=== PATIENT | female | born 1950 | race Caucasian/White ===

== ENCOUNTER 2018-06-01 20:10 | Inpatient (IN) | payer MEDICARE, MEDICAID ==
[~2018-06-01] VITALS: Ht 167.6 cm; Wt 61.1 kg
[2018-06-01] MEDS ORDERED: methylPREDNISolone SOD SUCC 125 MG/2 ML VL IV ONE (20:45)
[2018-06-01] MEDS ORDERED: cefTRIAXone 1GM/10ml IVPUSH 10 ML IV ONE (20:45)
[2018-06-01] MEDS: MAGNESIUM SULFATE 1GM/100ML 100 ML IV SCH ×2 (20:45→22:02)
[2018-06-01] MEDS ORDERED: MAGNESIUM SULFATE 1GM/100ML 100 ML IV ONE (20:48)
[2018-06-01] MEDS ORDERED: IPRATROPIUM BROM 0.5 MG/2.5ML INH SOL NEB ONE (21:00)
[2018-06-01] MEDS ORDERED: ALBUTEROL SULF 2.5 MG/0.5ML(0.5%) NEB SOLN NEB ONE (21:00)
[2018-06-01 21:10] LABS: Basophils # (auto) 0.1 uL; Basophils % (auto) 0.9 % (0.0-2.0); Eosinophils # (auto) 0 uL; Eosinophils % (auto) 0.1 % (0.0-7.0); Hematocrit 37.8 % (36.0-46.0); Hemoglobin 12.2 g/dL (12.2-16.2); Lymphocytes % (auto) 20.5 % (10.0-50.0); Mean Corpuscular Hgb Conc. 32.2 g/dL (32.0-36.0); Mean Corpuscular Volume 96.6 fL (80.0-100.0); Monocytes # (auto) 0.3 uL; Monocytes % (auto) 3.1 % (0.0-12.0); Neutrophils # (auto) 7.2 uL; Neutrophils % (auto) 75.4 % (37.0-80.0); Platelet Count (auto) 358 10^3/uL (140-450); Red Blood Cells 3.91 10^6/uL (4.0-5.20); Red Cell Distribution Width 15.2 % (11.8-14.3); White Blood Cell 9.6 10^3/uL (4.4-10.8)
[2018-06-01 21:18] LABS: INR 0.97 (0.9-1.15); Prothrombin Time 10.4 sec (9.27-12.13)
[2018-06-01 21:19] LABS: Albumin 3.5 g/dL (3.4-5.0); Anion Gap 12 (5-15); Blood Urea Nitrogen 18 mg/dL (7-18); Calcium 9.3 mg/dL (8.5-10.1); Carbon Dioxide 23 mmol/L (21-32); Chloride 106 mmol/L (98-107); Glucose 100 mg/dL (74-106); Potassium 4.5 mmol/L (3.5-5.1); Sodium 141 mmol/L (136-145)
[2018-06-01 21:21] LABS: Alanine Aminotransferase 15 U/L (13-56); Aspartate Aminotransferase 15 U/L (15-37); BUN/Creatinine Ratio 19.6; GFR African American 78 mL/min; GFR Non-African American 65 mL/min
[2018-06-01 21:25] LABS: Alkaline Phosphatase 107 U/L (45-117); Bilirubin, Total 0.6 mg/dL (0.2-1.0); Total Protein 7.9 g/dL (6.4-8.2)
[2018-06-01] MEDS ORDERED: ACETAMINOPHEN 500 MG TAB PO PRN (22:45)
[2018-06-01] MEDS ORDERED: LORazepam 0.5 MG TAB PO PRN (23:45)
[2018-06-02] MEDS: HYDROcodone-ACET 5/325MG TAB PO PRN ×4 (00:01→22:15)
[2018-06-02] MEDS: ALBUTEROL SULF 2.5 MG/0.5ML(0.5%) NEB SOLN NEB SCH ×4 (00:23→19:30)
[2018-06-02] MEDS: IPRATROPIUM BROM 0.5 MG/2.5ML INH SOL NEB SCH ×4 (00:23→19:30)
[2018-06-02 03:13] VITALS: BP 112/66
[2018-06-02 05:24] LABS: Urine Bacteria NONE SEEN /hpf (None Seen); Urine Blood Negative /uL (Negative); Urine Hyaline Cast FEW /lpf (0 - 2); Urine Mucus FEW (None Seen); Urine Specific Gravity 1.026 (1.001-1.035); Urine WBC 9 /hpf (0 - 5)
[2018-06-02] MEDS: GABAPENTIN 300 MG CAP PO SCH ×3 (06:08→22:14)
[2018-06-02 08:08] LABS: Basophils # (auto) 0.1 uL; Basophils % (auto) 0.7 % (0.0-2.0); Eosinophils # (auto) 0 uL; Hematocrit 36.4 % (36.0-46.0); Hemoglobin 11.7 g/dL (12.2-16.2); Lymphocytes # (auto) 1.1 uL; Lymphocytes % (auto) 13.8 % (10.0-50.0); Mean Corpuscular Hemoglobin 30.6 pg (28.0-32.0); Mean Corpuscular Hgb Conc. 32.2 g/dL (32.0-36.0); Mean Corpuscular Volume 95.2 fL (80.0-100.0); Monocytes # (auto) 0.1 uL; Monocytes % (auto) 1.9 % (0.0-12.0); Neutrophils # (auto) 6.5 uL; Neutrophils % (auto) 83.6 % (37.0-80.0); Platelet Count (auto) 343 10^3/uL (140-450); Red Blood Cells 3.83 10^6/uL (4.0-5.20); White Blood Cell 7.7 10^3/uL (4.4-10.8)
[2018-06-02 08:25] LABS: BUN/Creatinine Ratio 24.4; Calcium 8.9 mg/dL (8.5-10.1); Potassium 4.2 mmol/L (3.5-5.1)
[2018-06-02] MEDS: AZITHROMYCIN 500MG/ 250ML 250 ML IV SCH (10:44)
[2018-06-02] MEDS: FLUoxetine HCL 20 MG CAP PO SCH (10:44)
[2018-06-02] MEDS: APIXABAN 5 MG TAB PO SCH ×2 (10:45→22:14)
[2018-06-02 15:04] VITALS: BP 101/77
[2018-06-02] MEDS: ONDANSETRON HCL 4 MG/2 ML VIAL IV PRN ×2 (15:39→22:15)
[2018-06-02 17:00] VITALS: BP 116/94
[2018-06-02] MEDS ORDERED: GABA300C10 PO (17:12)
[2018-06-02] MEDS ORDERED: OME20T PO (17:12)
[2018-06-02] MEDS ORDERED: ALLO300T2 PO (17:12)
[2018-06-02] MEDS ORDERED: ALBUAER3 IN (17:12)
[2018-06-02] MEDS ORDERED: LOVA20TA4 PO (17:12)
[2018-06-02] MEDS ORDERED: FLUO20CA19 PO (17:12)
[2018-06-02] MEDS ORDERED: HYDR-531 PO (17:12)
[2018-06-02] MEDS ORDERED: [UNRECOGNIZED DRUG - CODE] PO (17:12)
[2018-06-02] MEDS ORDERED: PROM1SYP4 PO (17:12)
[2018-06-02] MEDS ORDERED: ALBU0.084 IN (17:12)
[2018-06-02] MEDS ORDERED: MONT10TA34 PO (17:12)
[2018-06-02] MEDS ORDERED: APIX5TAB OR (17:12)
[2018-06-02] MEDS ORDERED: DIPH25CA46 PO (17:12)
[2018-06-02] MEDS ORDERED: FLUT100I IN (17:12)
[2018-06-02] MEDS: NICOTINE 14 MG/24HR TOPICAL PATCH TD SCH (18:21)
[2018-06-02 20:00] VITALS: BP 130/68
[2018-06-02 22:00] VITALS: BP 130/68
[2018-06-02] MEDS ORDERED: MONTELUKAST SODIUM 10 MG TAB PO SCH (22:00)
[2018-06-03] MEDS: IPRATROPIUM BROM 0.5 MG/2.5ML INH SOL NEB SCH ×3 (00:36→12:01)
[2018-06-03] MEDS: ALBUTEROL SULF 2.5 MG/0.5ML(0.5%) NEB SOLN NEB SCH ×3 (00:36→12:01)
[2018-06-03] MEDS ORDERED: guaiFENesin 200 MG/10 ML UD GT PRN (00:45)
[2018-06-03] MEDS: HYDROcodone-ACET 5/325MG TAB PO PRN ×2 (03:11→09:06)
[2018-06-03 05:00] VITALS: BP 118/75
[2018-06-03] MEDS: GABAPENTIN 300 MG CAP PO SCH ×2 (06:11→14:37)
[2018-06-03] MEDS: NICOTINE 14 MG/24HR TOPICAL PATCH TD SCH (08:56)
[2018-06-03] MEDS: AZITHROMYCIN 500MG/ 250ML 250 ML IV SCH (08:56)
[2018-06-03] MEDS: FLUoxetine HCL 20 MG CAP PO SCH (08:57)
[2018-06-03] MEDS: APIXABAN 5 MG TAB PO SCH (08:57)
[2018-06-03 09:00] VITALS: BP 107/69
[2018-06-03] MEDS ORDERED: NICOTINE 14 MG/24HR TOPICAL PATCH TD SCH (10:00)
[2018-06-03] MEDS ORDERED: guaiFENesin 200 MG/10 ML UD GT ONE (13:15)
[2018-06-03] MEDS ORDERED: HYDROcodone-ACET 10/325MG TAB PO ONE (13:15)
== END 2018-06-03 15:50 | disposition home or self-care (01) | DRG 140 ==
LOC: ER 20:10 → EDBD 20:10 → TELE 20:11 → TELE-EAST 06-02 17:04
PROVIDERS: ADMIT Nurse Practitioner Family; ATTEND Internal Medicine Pulmonary Disease
DX: J44.1 Chronic obstructive pulmonary disease with (acute) exacerbation (principal); J96.20 Acute and chronic respiratory failure, unspecified whether with hypoxia or hypercapnia; Z99.81 Dependence on supplemental oxygen; I10 Essential (primary) hypertension; K21.9 Gastro-esophageal reflux disease without esophagitis; F32.9 Major depressive disorder, single episode, unspecified; M10.9 Gout, unspecified; M54.9 Dorsalgia, unspecified; F17.210 Nicotine dependence, cigarettes, uncomplicated; F12.90 Cannabis use, unspecified, uncomplicated; Z86.711 Personal history of pulmonary embolism
CPT/HCPCS: 36415; 36600; 71045; 80048; 80053; 81001; 82805; 83880; 84484; 85025; 85610; 85730; 93005; 94640; 96365; 96366; 96375; 99291; J0696; J2405

== ENCOUNTER 2018-06-26 16:21 | Inpatient (IN) | payer MEDICARE, MEDICAID ==
[~2018-06-26] VITALS: Ht 167.6 cm; Wt 63.4 kg
[~2018-06-26 16:21] MED LIST: ALBU0.084 IN; ALBUAER3 IN; ALLO300T2 PO; APIX5TAB OR; DIPH25CA46 PO; FLUO20CA19 PO; FLUT100I IN; GABA300C10 PO; HYDR-531 PO; LOVA20TA4 PO; MONT10TA34 PO; OME20T PO; PROM1SYP4 PO; [UNRECOGNIZED DRUG - CODE] PO
[2018-06-26 17:46] LABS: Basophils # (auto) 0.1 uL; Basophils % (auto) 0.8 % (0.0-2.0); Eosinophils # (auto) 0.1 uL; Eosinophils % (auto) 1.3 % (0.0-7.0); Hematocrit 37.3 % (36.0-46.0); Hemoglobin 11.9 g/dL (12.2-16.2); Lymphocytes # (auto) 2.2 uL; Mean Corpuscular Hemoglobin 30.4 pg (28.0-32.0); Mean Corpuscular Hgb Conc. 31.8 g/dL (32.0-36.0); Mean Corpuscular Volume 95.6 fL (80.0-100.0); Monocytes # (auto) 0.6 uL; Neutrophils # (auto) 8.1 uL; Neutrophils % (auto) 72.9 % (37.0-80.0); Nucleated Red Blood Cells % 0.1 %; Platelet Count (auto) 242 10^3/uL (140-450); Red Blood Cells 3.91 10^6/uL (4.0-5.20); Red Cell Distribution Width 15.2 % (11.8-14.3); White Blood Cell 11.1 10^3/uL (4.4-10.8)
[2018-06-26 17:59] LABS: Alanine Aminotransferase 19 U/L (13-56); Albumin 3.6 g/dL (3.4-5.0); Alkaline Phosphatase 92 U/L (45-117); Anion Gap 6 (5-15); Aspartate Aminotransferase 13 U/L (15-37); BUN/Creatinine Ratio 18.2; Bilirubin, Total 0.2 mg/dL (0.2-1.0); Blood Urea Nitrogen 18 mg/dL (7-18); Calcium 9.1 mg/dL (8.5-10.1); Carbon Dioxide 24 mmol/L (21-32); Chloride 112 mmol/L (98-107); GFR African American 72 mL/min; GFR Non-African American 59 mL/min; Glucose 124 mg/dL (74-106); Potassium 3.8 mmol/L (3.5-5.1); Sodium 142 mmol/L (136-145); Total Protein 7.7 g/dL (6.4-8.2)
[2018-06-26] MEDS ORDERED: ALBUTEROL SULF 2.5 MG/0.5ML(0.5%) NEB SOLN NEB ONE (18:30)
[2018-06-26] MEDS ORDERED: cefTRIAXone 1GM/10ml IVPUSH 10 ML IV ONE (18:30)
[2018-06-26] MEDS ORDERED: IPRATROPIUM BROM 0.5 MG/2.5ML INH SOL NEB ONE (18:30)
[2018-06-26] MEDS ORDERED: methylPREDNISolone SOD SUCC 125 MG/2 ML VL IV ONE (18:30)
[2018-06-26] MEDS ORDERED: NITROGLYCERIN 0.4 MG SL TAB SL PRN (21:00)
[2018-06-26] MEDS ORDERED: AZITHROMYCIN 500MG/ 250ML 250 ML IV ONE (21:00)
[2018-06-26] MEDS ORDERED: ONDANSETRON HCL 4 MG/2 ML VIAL IV PRN (21:00)
[2018-06-26] MEDS ORDERED: ACETAMINOPHEN 325 MG TAB PO PRN (21:00)
[2018-06-26] MEDS ORDERED: MORPHINE SULFATE 4 MG/ML SYR/VIAL IV PRN (21:00)
[2018-06-26 21:04] LABS: Urine Bacteria NONE SEEN /hpf (None Seen); Urine Blood Negative /uL (Negative); Urine Mucus FEW (None Seen); Urine Specific Gravity 1.028 (1.001-1.035); Urine WBC 2 /hpf (0 - 5)
[2018-06-26 21:34] VITALS: BP 94/61
[2018-06-26] MEDS: FAMOTIDINE 20 MG TAB PO SCH (22:00)
[2018-06-26] MEDS: APIXABAN 5 MG TAB PO SCH (22:00)
[2018-06-26] MEDS: ATORVASTATIN 20 MG TAB PO SCH (22:00)
[2018-06-26] MEDS: MONTELUKAST SODIUM 10 MG TAB PO SCH (22:00)
[2018-06-26] MEDS: methylPREDNISolone SOD SUCC 125 MG/2 ML VL IV SCH (22:00)
[2018-06-26] MEDS: GABAPENTIN 300 MG CAP PO SCH (22:00)
[2018-06-26] MEDS: HYDROcodone-ACET 5/325MG TAB PO PRN (22:32)
[2018-06-26] MEDS ORDERED: methylPREDNISolone SOD SUCC 40 MG/ML VL ONE (22:43)
[2018-06-27] MEDS: HYDROcodone-ACET 5/325MG TAB PO PRN ×4 (03:04→14:14)
[2018-06-27] MEDS: GABAPENTIN 300 MG CAP PO SCH ×3 (06:24→23:52)
[2018-06-27] MEDS: ALBUTEROL SULF 2.5 MG/0.5ML(0.5%) NEB SOLN NEB PRN (06:32)
[2018-06-27 07:24] LABS: Basophils # (auto) 0.1 uL; Eosinophils # (auto) 0 uL; Eosinophils % (auto) 0.1 % (0.0-7.0); Hematocrit 32.7 % (36.0-46.0); Hemoglobin 10.8 g/dL (12.2-16.2); Lymphocytes # (auto) 1.2 uL; Lymphocytes % (auto) 13.7 % (10.0-50.0); Monocytes # (auto) 0.1 uL; Monocytes % (auto) 0.6 % (0.0-12.0); Neutrophils # (auto) 7.3 uL; Neutrophils % (auto) 84.6 % (37.0-80.0); Nucleated Red Blood Cells % 0.1 %; Platelet Count (auto) 319 10^3/uL (140-450); Red Blood Cells 3.48 10^6/uL (4.0-5.20); Red Cell Distribution Width 15.2 % (11.8-14.3); White Blood Cell 8.6 10^3/uL (4.4-10.8)
[2018-06-27 07:40] LABS: Albumin 3.2 g/dL (3.4-5.0); BUN/Creatinine Ratio 21.7; Calcium 8.4 mg/dL (8.5-10.1); Potassium 4.1 mmol/L (3.5-5.1)
[2018-06-27 07:43] LABS: Bilirubin, Total 0.3 mg/dL (0.2-1.0)
[2018-06-27 09:00] VITALS: BP 113/59
[2018-06-27] MEDS: AZITHROMYCIN 500MG/ 250ML 250 ML IV SCH (09:59)
[2018-06-27] MEDS: methylPREDNISolone SOD SUCC 125 MG/2 ML VL IV SCH ×2 (10:00→23:51)
[2018-06-27] MEDS: APIXABAN 5 MG TAB PO SCH ×2 (10:00→23:52)
[2018-06-27] MEDS: cefTRIAXone 1GM/10ml IVPUSH 10 ML IV SCH (10:00)
[2018-06-27] MEDS: ALLOPURINOL 300 MG TAB PO SCH (10:01)
[2018-06-27] MEDS: FAMOTIDINE 20 MG TAB PO SCH ×2 (10:01→23:52)
[2018-06-27] MEDS: FLUoxetine HCL 20 MG CAP PO SCH (10:01)
[2018-06-27] MEDS: NICOTINE 14 MG/24HR TOPICAL PATCH TD SCH (12:20)
[2018-06-27 13:00] VITALS: BP 114/70
[2018-06-27 17:39] VITALS: BP 130/67
[2018-06-27] MEDS: HYDROcodone-ACET 10/325MG TAB PO PRN ×2 (18:05→22:06)
[2018-06-27 21:37] VITALS: BP 129/72
[2018-06-27] MEDS: MONTELUKAST SODIUM 10 MG TAB PO SCH (23:52)
[2018-06-27] MEDS: ATORVASTATIN 20 MG TAB PO SCH (23:52)
[2018-06-28 05:32] VITALS: BP 95/55
[2018-06-28] MEDS: GABAPENTIN 300 MG CAP PO SCH ×3 (07:06→22:50)
[2018-06-28] MEDS: HYDROcodone-ACET 10/325MG TAB PO PRN ×4 (07:13→20:30)
[2018-06-28 08:00] VITALS: BP 109/67
[2018-06-28 09:00] VITALS: BP 109/67
[2018-06-28] MEDS: cefTRIAXone 1GM/10ml IVPUSH 10 ML IV SCH (09:10)
[2018-06-28] MEDS: AZITHROMYCIN 500MG/ 250ML 250 ML IV SCH (09:11)
[2018-06-28] MEDS: methylPREDNISolone SOD SUCC 125 MG/2 ML VL IV SCH ×2 (09:11→22:49)
[2018-06-28] MEDS: APIXABAN 5 MG TAB PO SCH ×2 (09:12→22:49)
[2018-06-28] MEDS: NICOTINE 14 MG/24HR TOPICAL PATCH TD SCH (09:12)
[2018-06-28] MEDS: FAMOTIDINE 20 MG TAB PO SCH ×2 (09:12→22:50)
[2018-06-28] MEDS: ALLOPURINOL 300 MG TAB PO SCH (09:12)
[2018-06-28] MEDS: FLUoxetine HCL 20 MG CAP PO SCH (09:12)
[2018-06-28] MEDS ORDERED: guaiFENesin-CODEINE LIQUID 5 ML UD PO PRN (10:00)
[2018-06-28 13:00] VITALS: BP 108/64
[2018-06-28 18:13] VITALS: BP 120/75
[2018-06-28] MEDS: ALBUTEROL SULF 2.5 MG/0.5ML(0.5%) NEB SOLN NEB PRN (18:19)
[2018-06-28 22:00] VITALS: BP 136/75
[2018-06-28] MEDS: ATORVASTATIN 20 MG TAB PO SCH (22:49)
[2018-06-28] MEDS: MONTELUKAST SODIUM 10 MG TAB PO SCH (22:50)
[2018-06-29] VITALS (7 sets, daily range): BP systolic 100–111; BP diastolic 60–72
[2018-06-29] MEDS: HYDROcodone-ACET 10/325MG TAB PO PRN ×4 (04:49→18:54)
[2018-06-29] MEDS: GABAPENTIN 300 MG CAP PO SCH ×3 (06:40→22:01)
[2018-06-29] MEDS: cefTRIAXone 1GM/10ml IVPUSH 10 ML IV SCH (09:05)
[2018-06-29] MEDS: AZITHROMYCIN 500MG/ 250ML 250 ML IV SCH (09:05)
[2018-06-29] MEDS: methylPREDNISolone SOD SUCC 125 MG/2 ML VL IV SCH (09:05)
[2018-06-29] MEDS: APIXABAN 5 MG TAB PO SCH ×2 (09:06→22:01)
[2018-06-29] MEDS: FLUoxetine HCL 20 MG CAP PO SCH (09:06)
[2018-06-29] MEDS: FAMOTIDINE 20 MG TAB PO SCH ×2 (09:06→22:01)
[2018-06-29] MEDS: NICOTINE 14 MG/24HR TOPICAL PATCH TD SCH (09:06)
[2018-06-29] MEDS: ALLOPURINOL 300 MG TAB PO SCH (09:07)
[2018-06-29] MEDS ORDERED: methylPREDNISolone SOD SUCC 40 MG/ML VL IV SCH (10:00)
[2018-06-29] MEDS: ALPRAZolam 0.25 MG TAB PO PRN ×2 (10:28→16:45)
[2018-06-29] MEDS: ALBUTEROL SULF 2.5 MG/0.5ML(0.5%) NEB SOLN NEB PRN (19:29)
[2018-06-29] MEDS: methylPREDNISolone SOD SUCC 40 MG/ML VL IV SCH (22:00)
[2018-06-29] MEDS: ATORVASTATIN 20 MG TAB PO SCH (22:01)
[2018-06-29] MEDS: TEMAZEPAM 15 MG CAP PO PRN (22:01)
[2018-06-29] MEDS: MONTELUKAST SODIUM 10 MG TAB PO SCH (22:01)
[2018-06-30 04:54] VITALS: BP 110/65
[2018-06-30] MEDS: GABAPENTIN 300 MG CAP PO SCH ×3 (05:53→21:23)
[2018-06-30] MEDS: HYDROcodone-ACET 10/325MG TAB PO PRN ×4 (05:53→21:23)
[2018-06-30 08:00] VITALS: BP 107/63
[2018-06-30] MEDS: AZITHROMYCIN 500MG/ 250ML 250 ML IV SCH (08:23)
[2018-06-30] MEDS: ALLOPURINOL 300 MG TAB PO SCH (08:24)
[2018-06-30] MEDS: FAMOTIDINE 20 MG TAB PO SCH ×2 (08:24→21:23)
[2018-06-30] MEDS: cefTRIAXone 1GM/10ml IVPUSH 10 ML IV SCH (08:24)
[2018-06-30] MEDS: methylPREDNISolone SOD SUCC 40 MG/ML VL IV SCH (08:24)
[2018-06-30] MEDS: ALPRAZolam 0.25 MG TAB PO PRN ×3 (08:24→19:46)
[2018-06-30] MEDS: APIXABAN 5 MG TAB PO SCH ×2 (08:24→21:22)
[2018-06-30] MEDS: NICOTINE 14 MG/24HR TOPICAL PATCH TD SCH (08:24)
[2018-06-30] MEDS: FLUoxetine HCL 20 MG CAP PO SCH (08:24)
[2018-06-30 12:00] VITALS: BP 115/71
[2018-06-30 17:00] VITALS: BP 117/84
[2018-06-30] MEDS: IPRATROPIUM BROM 0.5 MG/2.5ML INH SOL NEB SCH (18:36)
[2018-06-30] MEDS: ALBUTEROL SULF 2.5 MG/0.5ML(0.5%) NEB SOLN NEB SCH (18:36)
[2018-06-30] MEDS: MONTELUKAST SODIUM 10 MG TAB PO SCH (21:22)
[2018-06-30] MEDS: DOXYCYCLINE 100 MG TAB/CAP PO SCH (21:22)
[2018-06-30] MEDS: ATORVASTATIN 20 MG TAB PO SCH (21:23)
[2018-06-30 22:00] VITALS: BP 123/69
[2018-06-30] MEDS: TEMAZEPAM 15 MG CAP PO PRN (22:53)
[2018-06-30] MEDS: DOCUSATE SOD 100 MG CAP PO PRN (22:53)
[2018-07-01 04:48] VITALS: BP 121/77
[2018-07-01] MEDS: GABAPENTIN 300 MG CAP PO SCH ×3 (05:58→21:52)
[2018-07-01] MEDS: IPRATROPIUM BROM 0.5 MG/2.5ML INH SOL NEB SCH ×4 (07:00→18:47)
[2018-07-01] MEDS: ALBUTEROL SULF 2.5 MG/0.5ML(0.5%) NEB SOLN NEB SCH ×4 (07:00→18:47)
[2018-07-01 08:00] VITALS: BP 100/61
[2018-07-01 08:08] VITALS: BP 100/61
[2018-07-01] MEDS: NICOTINE 14 MG/24HR TOPICAL PATCH TD SCH (08:10)
[2018-07-01] MEDS: DOXYCYCLINE 100 MG TAB/CAP PO SCH ×2 (08:11→21:52)
[2018-07-01] MEDS: FAMOTIDINE 20 MG TAB PO SCH ×2 (08:11→21:52)
[2018-07-01] MEDS: ALLOPURINOL 300 MG TAB PO SCH (08:11)
[2018-07-01] MEDS: APIXABAN 5 MG TAB PO SCH ×2 (08:11→21:51)
[2018-07-01] MEDS: FLUoxetine HCL 20 MG CAP PO SCH (08:11)
[2018-07-01] MEDS: HYDROcodone-ACET 10/325MG TAB PO PRN ×3 (08:17→20:52)
[2018-07-01 08:22] LABS: Basophils # (auto) 0 uL; Basophils % (auto) 0.3 % (0.0-2.0); Eosinophils # (auto) 0.1 uL; Eosinophils % (auto) 1.3 % (0.0-7.0); Hematocrit 38.1 % (36.0-46.0); Hemoglobin 12.2 g/dL (12.2-16.2); Lymphocytes % (auto) 45.3 % (10.0-50.0); Mean Corpuscular Hemoglobin 30.9 pg (28.0-32.0); Mean Corpuscular Hgb Conc. 32.1 g/dL (32.0-36.0); Mean Corpuscular Volume 96.4 fL (80.0-100.0); Monocytes # (auto) 0.9 uL; Monocytes % (auto) 7.8 % (0.0-12.0); Neutrophils % (auto) 45.3 % (37.0-80.0); Nucleated Red Blood Cells % 0.1 %; Platelet Count (auto) 333 10^3/uL (140-450); Red Blood Cells 3.95 10^6/uL (4.0-5.20); White Blood Cell 11.1 10^3/uL (4.4-10.8)
[2018-07-01 08:40] LABS: Anion Gap 11 (5-15); BUN/Creatinine Ratio 24.2; Blood Urea Nitrogen 22 mg/dL (7-18); Calcium 8.2 mg/dL (8.5-10.1); Carbon Dioxide 24 mmol/L (21-32); Chloride 107 mmol/L (98-107); GFR African American 79 mL/min; GFR Non-African American 65 mL/min; Glucose 108 mg/dL (74-106); Potassium 3.5 mmol/L (3.5-5.1); Sodium 142 mmol/L (136-145)
[2018-07-01] MEDS ORDERED: predniSONE 20 MG TAB PO SCH (10:00)
[2018-07-01] MEDS: ALPRAZolam 0.25 MG TAB PO PRN ×3 (10:55→19:38)
[2018-07-01 13:08] VITALS: BP 98/59
[2018-07-01 17:30] VITALS: BP 120/20
[2018-07-01] MEDS: DOCUSATE SOD 100 MG CAP PO PRN (21:51)
[2018-07-01] MEDS: MONTELUKAST SODIUM 10 MG TAB PO SCH (21:51)
[2018-07-01] MEDS: ATORVASTATIN 20 MG TAB PO SCH (21:52)
[2018-07-01] MEDS: TEMAZEPAM 15 MG CAP PO PRN (21:52)
[2018-07-01 22:00] VITALS: BP 121/81
[2018-07-02] MEDS: HYDROcodone-ACET 10/325MG TAB PO PRN (04:17)
[2018-07-02 05:00] VITALS: BP 118/74
[2018-07-02] MEDS: GABAPENTIN 300 MG CAP PO SCH (06:07)
[2018-07-02] MEDS: ALPRAZolam 0.25 MG TAB PO PRN (06:07)
[2018-07-02] MEDS: IPRATROPIUM BROM 0.5 MG/2.5ML INH SOL NEB SCH (06:19)
[2018-07-02] MEDS: ALBUTEROL SULF 2.5 MG/0.5ML(0.5%) NEB SOLN NEB SCH (06:19)
[2018-07-02 08:59] VITALS: BP 97/65
== END 2018-07-02 09:57 | disposition home or self-care (01) | DRG 720 ==
LOC: ER 16:29 → TELE 16:30 → TELE-WESTW 06-27 06:40
PROVIDERS: ADMIT Nurse Practitioner; ATTEND Specialist
DX: A41.9 Sepsis, unspecified organism (principal); J96.20 Acute and chronic respiratory failure, unspecified whether with hypoxia or hypercapnia; J18.9 Pneumonia, unspecified organism; J44.1 Chronic obstructive pulmonary disease with (acute) exacerbation; J44.0 Chronic obstructive pulmonary disease with (acute) lower respiratory infection; D63.8 Anemia in other chronic diseases classified elsewhere; E78.5 Hyperlipidemia, unspecified; F17.210 Nicotine dependence, cigarettes, uncomplicated; F41.9 Anxiety disorder, unspecified; I10 Essential (primary) hypertension; K21.9 Gastro-esophageal reflux disease without esophagitis; Z79.01 Long term (current) use of anticoagulants; Z82.49 Family history of ischemic heart disease and other diseases of the circulatory system; Z83.3 Family history of diabetes mellitus; Z86.711 Personal history of pulmonary embolism; Z86.718 Personal history of other venous thrombosis and embolism; Z86.73 Personal history of transient ischemic attack (TIA), and cerebral infarction without residual deficits; Z90.710 Acquired absence of both cervix and uterus; Z91.19 Patient's noncompliance with other medical treatment and regimen; Z87.440 Personal history of urinary (tract) infections; Z99.81 Dependence on supplemental oxygen; Z71.89 Other specified counseling
CPT/HCPCS: 36415; 71045; 71250; 80048; 80053; 81001; 83605; 83735; 83880; 84484; 85025; 87040; 93005; 94640; 96365; 96375; 96376; A6257; J0696

== ENCOUNTER 2018-08-15 19:44 | Emergency (ER) | payer MEDICARE, MEDICAID ==
[~2018-08-15] VITALS: Ht 167.6 cm; Wt 47.2 kg
[2018-08-15 20:39] LABS: Basophils # (auto) 0.1 uL; Eosinophils # (auto) 0.1 uL; Eosinophils % (auto) 1.1 % (0.0-7.0); Hemoglobin 12.5 g/dL (12.2-16.2); Lymphocytes % (auto) 18.7 % (10.0-50.0); Mean Corpuscular Hemoglobin 31.9 pg (28.0-32.0); Mean Corpuscular Hgb Conc. 32.9 g/dL (32.0-36.0); Mean Corpuscular Volume 97.1 fL (80.0-100.0); Monocytes # (auto) 0.6 uL; Monocytes % (auto) 5.7 % (0.0-12.0); Neutrophils % (auto) 73.5 % (37.0-80.0); Platelet Count (auto) 315 10^3/uL (140-450); Red Blood Cells 3.91 10^6/uL (4.0-5.20); Red Cell Distribution Width 15.1 % (11.8-14.3); White Blood Cell 10.9 10^3/uL (4.4-10.8)
[2018-08-15 20:59] LABS: INR 0.91 (0.9-1.15); Partial Thromboplastin Time 27.3 sec (23.78-33.04); Prothrombin Time 9.8 sec (9.27-12.13)
[2018-08-15 21:00] LABS: Albumin 3.9 g/dL (3.4-5.0); Anion Gap 6 (5-15); Blood Urea Nitrogen 19 mg/dL (7-18); Calcium 9.4 mg/dL (8.5-10.1); Carbon Dioxide 26 mmol/L (21-32); Chloride 109 mmol/L (98-107); Glucose 105 mg/dL (74-106); Potassium 3.8 mmol/L (3.5-5.1); Sodium 141 mmol/L (136-145)
[2018-08-15 21:06] LABS: Alanine Aminotransferase 18 U/L (13-56); Alkaline Phosphatase 90 U/L (45-117); Aspartate Aminotransferase 14 U/L (15-37); BUN/Creatinine Ratio 20.9; Bilirubin, Total 0.3 mg/dL (0.2-1.0); GFR African American 79 mL/min; GFR Non-African American 65 mL/min; Total Protein 8.1 g/dL (6.4-8.2)
[2018-08-15 23:24] VITALS: BP 137/79
== END 2018-08-15 23:37 | disposition left against medical advice (07) ==
LOC: ER 19:46
DX: M54.6 Pain in thoracic spine (principal); G89.29 Other chronic pain; R51 Headache; E78.5 Hyperlipidemia, unspecified; I10 Essential (primary) hypertension; F17.210 Nicotine dependence, cigarettes, uncomplicated; J44.9 Chronic obstructive pulmonary disease, unspecified; K21.9 Gastro-esophageal reflux disease without esophagitis; Z79.899 Other long term (current) drug therapy; Z53.29 Procedure and treatment not carried out because of patient's decision for other reasons; Z86.73 Personal history of transient ischemic attack (TIA), and cerebral infarction without residual deficits; Z90.710 Acquired absence of both cervix and uterus
CPT/HCPCS: 36415; 70450; 71045; 80053; 84484; 85025; 85379; 85610; 85730; 93005; 94761

== ENCOUNTER 2018-10-08 17:42 | Inpatient (IN) | payer MEDICARE, MEDICAID | END 2018-10-10 15:30 | disposition home or self-care (01) | LOC: TELE-WESTW 23:59 → ER 17:42 → TELE 21:36 → TELE-EAST 23:40 | DX: J69.0 Pneumonitis due to inhalation of food and vomit (principal); J96.20 Acute and chronic respiratory failure, unspecified whether with hypoxia or hypercapnia; J44.1 Chronic obstructive pulmonary disease with (acute) exacerbation; E11.9 Type 2 diabetes mellitus without complications; G40.909 Epilepsy, unspecified, not intractable, without status epilepticus ==